=== PATIENT | male | born 1955 | race Caucasian/White ===

== ENCOUNTER 2019-06-18 09:30 | Inpatient (IN) | payer OTHER ==
--- NOTE | 2019-06-12 15:18 | HP ---
Amended report to enter cosigning physician on report. HISTORY AND PHYSICAL: DATE OF ADMISSION/SURGERY: 06/18/19 DATE OF OFFICE VISIT: 06/10/19 SURGEON: Hollie Daniels MD* PROCEDURE: Right total hip arthroplasty. CHIEF COMPLAINT: Right hip pain. HISTORY OF PRESENT ILLNESS: Mr. Gandhi is a 63-year-old gentleman with end-stage osteoarthritis of the right hip. He has failed conservative treatment and elected to proceed with a right total hip arthroplasty. PAST MEDICAL HISTORY: Hypertension. PAST SURGICAL HISTORY: Hernia repair and right shoulder arthroscopy. CURRENT MEDICATIONS: 1. Atenolol 25 mg a day. 2. Lisinopril/hydrochlorothiazide 10/12.5 mg daily. 3. 81 mg aspirin. 4. Multivitamin. 5. Diphenhydramine 25 mg a day as needed. ALLERGIES: No known drug allergies. FAMILY HISTORY: Cancer and diabetes. SOCIAL HISTORY: He is a 63-year-old gentleman, lives alone. He does report using medical marijuana and has been sober for the last 2 days. Prior to that, he reports 3 to 5 beers a night for the last few weeks. REVIEW OF SYSTEMS: A complete 14-point review of systems was reviewed with the patient. It was all negative or noncontributory. He denies history of DVT, PE , hepatitis, HIV, or anesthesia problems. PHYSICAL EXAMINATION GENERAL: He is well developed, well nourished, in no acute distress. VITAL SIGNS: He stands 70 inches tall, weighs 178 pounds. His blood pressure is 134/70, his heart rate is 66. HEENT: Normocephalic, atraumatic. NECK: Supple. No palpable lymph nodes. PULMONARY: The lungs are clear to auscultation bilaterally. CARDIO: Regular rate and rhythm. Strong S1, S2. ABDOMEN: Soft, nontender, nondistended. NEUROLOGICAL: He is alert and oriented x3. MUSCULOSKELETAL: Right lower extremity: The skin is intact. There are no open wounds or abrasions. He walks with an antalgic-type gait favoring his right hip. He has decreased internal and external rotation of the right hip. He is able to dorsiflex and plantar flex, has a 2+ dorsalis pedis pulse and intact sensation. ASSESSMENT AND PLAN: Mr. Gandhi is a 63-year-old gentleman with end-stage osteoarthritis of the right hip. He has failed conservative treatment and elected to proceed with a right total hip arthroplasty. The surgery is scheduled for 06/18/[address] Daniels discussed the risks and benefits of the surgery at today's visit and all of his questions were answered. He will follow up with Dr. Daniels 2 weeks after the surgery. MAGALY GUARDADO [id number]/[facility] #: [id number] MTDLetty
[~2019-06-18 09:30] MED LIST: Acetaminophen TAB* 325 MG PO ONE; Buffered Lidocaine 1% SYRIN* 1 ML/SYRINGE INTRADERM ONE; Gabapentin CAP(*) 300 MG PO ONE; Lactated Ringers 1000 ML Bag* 1,000 ML IV SCH; Tranexamic Acid 1,000 MG in NS 0.9% 50 ML* (outpatient use) IV SCH; celeCOXIB CAP* 200 MG PO ONE
--- OUTSIDE RECORDS SUMMARY | 2019-06-18 09:33 | XMS REPORT | Continuity of Care Document ---
:1955 External Reference #:[id number] Author Name Leda Medina MD (transmitted by agent of provider Shahida Camacho) Address [address] [facility] , [place] [address] Care Team Providers Name Role Phone Kassidy Schwarz MD - Internal Medicine Care Team Information School Examiner [phone] Problems Active Problems Provider Date Localized, primary osteoarthritis of the pelvic Hollie Daniels M.D. Onset: region and thigh Social History Type Date Description Comments Sex Unknown ETOH Use Currently consumes Approx. 10 beers per alcohol week Tobacco Use Start: Unknown End: Patient is a former 1 ppd from 17-40 Unknown smoker Smoking Status Reviewed: 06/05/19 Patient is a former 1 ppd from 17-40 smoker Exercise Exercises regularly twice daily. Type/Frequency exercise bar and stairs. Allergies, Adverse Reactions, Alerts Description No Known Drug Allergies Medications Active Medications SIG Qnty Indications Ordering Provider Date Atenolol 1 by mouth every 30tabs Joshua Concepcion NP 02/20/2019 25mg Tablets day Celecoxib 1 by mouth once 30caps M16.0 Joshua Concepcion NP 02/20/2019 200mg Capsules daily as needed Lisinopril-Hydrochloro 1 by mouth every 30tabs Joshua Concepcion NP 01/16/2019 thiazide day 10-12.5mg Tablets Aspirin 81 Low Dose 1 by mouth every Unknown 81mg day Chewtabs Multivitamin Adult 1 by mouth every Unknown day Tablets History Medications Hydrocodone-Acetaminophen 1 or 2 tabs by 30tabs Joshua Concepcion 02/27/2019 - 5-325mg Tablets mouth every PAPER FEEDER 06/03/2019 6-8 hours as needed for pain Medications Administered in Office Medication SIG Qnty Indications Ordering Provider Date Depomedrol 40MG Uziel Uribe MD 01/16/2019 Injection Immunizations Description No Information Available Vital Signs Date Vital Result Comment 06/05/2019 10:01am Height 70.75 inches 5'10.75" Weight 180.00 lb Heart Rate 55 /min BP Systolic Sitting 113 mmHg BP Diastolic Sitting 69 mmHg Body Temperature 97.5 F O2 % BldC Oximetry 94 % BMI (Body Mass Index) 25.3 kg/m2 05/06/2019 1:59pm Height 70.75 inches 5'10.75" Weight 182.00 lb Heart Rate 60 /min BP Systolic 116 mmHg BP Diastolic 70 mmHg Respiratory Rate 12 /min Body Temperature 97.2 F Pain Level 4 BMI (Body Mass Index) 25.6 kg/m2 Results Test Acquired Date Facility Test Result H/L Range Note Laboratory test 03/08/2019 [facility] In House Hemosure <pending> finding Non-Medicare Procedures Date Code Description Status 01/16/2019 Inject/Drain Joint/Bursa Major W/O US Completed Medical Devices Description No Information Available Encounters Type Date Location Provider Dx Diagnosis Office Visit 05/06/2019 [facility] Hollie Daniels, M25.552 Pain in left hip 1:45p at [facility].Rohan M25.551 Pain in right hip M16.12 Unilateral primary osteoarthritis, left hip M16.11 Unilateral primary osteoarthritis, right hip Office Visit 03/08/2019 2:40p [facility] Joshuavel Concepcion PAPER FEEDER M25.552 Pain in left Medicine - [facility] hip I10 Essential (primary) hypertension I83.93 Asymptomatic varicose veins of bilateral lower extremities Z13.1 Encounter for screening for diabetes mellitus Z12.5 Encounter for screening for malignant neoplasm of prostate Z13.220 Encounter for screening for lipoid disorders Z12.11 Encounter for screening for malignant neoplasm of colon Office Visit 02/20/2019 11:00a [facility] Joshuavel Concepcion, I10 Essential ( primary) Medicine - [facility] PAPER FEEDER hypertension M16.0 Bilateral primary osteoarthritis of hip M25.562 Pain in left knee M25.561 Pain in right knee Office Visit 01/16/2019 [facility] Michelle M19.011 Primary 1:00p [facility] at [facility] osteoarthritis, [place] right shoulder S40.011A Contusion of right shoulder, initial encounter M75.101 Unsp rotatr-cuff tear/ruptr of right shoulder, not trauma Assessments Date Code Description Provider 06/05/2019 Z01.818 Encounter for other preprocedural Leda Medina MD examination 06/05/2019 M16.11 Unilateral primary osteoarthritis, right Leda Medina MD hip 06/05/2019 M25.551 Pain in right hip Leda Medina MD 05/06/2019 M25.552 Pain in left hip Hollie Daniels M.D. 05/06/2019 M25.551 Pain in right hip Hollie Daniels M.D. 05/06/2019 M16.12 Unilateral primary osteoarthritis, left Hollie Daniels M.D. hip 05/06/2019 M16.11 Unilateral primary osteoarthritis, right Hollie Daniels M.D. hip 03/08/2019 M25.552 Pain in left hip Joshua Jamey, PAPER FEEDER 03/08/2019 I10 Essential (primary) hypertension Joshua Jamey, PAPER FEEDER 03/08/2019 I83.93 Asymptomatic varicose veins of bilateral Joshua Jamey, PAPER FEEDER lower extremities 03/08/2019 Z13.1 Encounter for screening for diabetes Joshua Jamey, PAPER FEEDER mellitus 03/08/2019 Z12.5 Encounter for screening for malignant Joshua Jamey, PAPER FEEDER neoplasm of prostate 03/08/2019 Z13.220 Encounter for screening for lipoid Joshua Jamey, PAPER FEEDER disorders 03/08/2019 Z12.11 Encounter for screening for malignant Joshua Jamey, PAPER FEEDER neoplasm of colon 02/20/2019 I10 Essential (primary) hypertension Joshua Jamey, PAPER FEEDER 02/20/2019 M16.0 Bilateral primary osteoarthritis of hip Joshua Jamey, PAPER FEEDER 02/20/2019 M25.562 Pain in left knee Joshua Jamey, PAPER FEEDER 02/20/2019 M25.561 Pain in right knee Joshua Jamye, PAPER FEEDER 01/16/2019 M19.011 Primary osteoarthritis, right shoulder Uziel Uribe MD 01/16/2019 S40.011A Contusion of right shoulder, initial Uziel Uribe MD encounter 01/16/2019 M75.101 Unspecified rotator cuff tear or rupture Uziel Uribe MD of right shoulder, not specified as traumatic Plan of Treatment Future Appointment(s):06/10/2019 1:30 pm - Hollie Daniels M.D. at [facility] at Ocefkr3806/18/2019 12:30 pm - Hollie Daniels M.D. at [facility] at Mdjbhk9606/05/2019 - Leda Medina MDZ01.818 Encounter for other preprocedural jollvlzrvjqB67.11 Unilateral primary osteoarthritis, right hipComments:Can ask Dr Daniels on 06/10/19 specifica of the zcezrrrA63.551 Pain in right hip Functional Status Description No Information Available Mental Status Description No Information Available Referrals Refer to Reason for Referral Status Appt Date Isa Mcdaniel MD Sent 06/05/[address] [place] [address], [facility] [place] [address] [phone]
--- OUTSIDE RECORDS SUMMARY | 2019-06-18 09:33 | XMS REPORT | Continuity of Care Document ---
:1955 External Reference #:[id number] Author Name Hollie Daniels M.D. (transmitted by agent of provider Anay Rahman) Address [address] [facility] [place] [address] Care Team Providers Name Role Phone Kassidy Schwarz MD - Internal Medicine Care Team Information Grab Driver [phone] Problems Active Problems Provider Date Localized, primary osteoarthritis of the pelvic Hollie Daniels M.D. Onset: region and thigh Social History Type Date Description Comments Sex Unknown ETOH Use Currently consumes Approx. 10 beers per alcohol week Tobacco Use Start: Unknown End: Patient is a former 1 ppd from 17-40 Unknown smoker Smoking Status Reviewed: 06/10/19 Patient is a former 1 ppd from 17-40 smoker Exercise Exercises regularly twice daily. Type/Frequency exercise bar and stairs. Allergies, Adverse Reactions, Alerts Description No Known Drug Allergies Medications Active Medications SIG Qnty Indications Ordering Date Provider Hydrocodone-Acetaminophe 1 tabs by 21tabs Hollie Daniels, 06/10/2019 n mouth every 8 M.D. 5-325mg Tablets hours as needed for pain Atenolol 1 by mouth 30tabs Joshua Concepcion NP 02/20/2019 25mg Tablets every day Celecoxib 1 by mouth once 30caps M16.0 Joshua Concepcion NP 02/20/2019 200mg Capsules daily as needed Lisinopril-Hydrochloroth 1 by mouth 30tabs Joshua Concepcion NP 01/16/2019 iazide every day 10-12.5mg Tablets Aspirin 81 Low Dose 1 by mouth Unknown 81mg every day- On Chewtabs Hold Multivitamin Adult 1 by mouth Unknown Tablets every day Diphenhydramine HCL Unknown 25mg Capsules History Medications Hydrocodone-Acetaminophen 1 or 2 tabs by 30tabs Joshua Concepcion, 02/27/2019 - 5-325mg Tablets mouth every RACK PUNCHER 06/03/2019 6-8 hours as needed for pain Medications Administered in Office Medication SIG Qnty Indications Ordering Provider Date Depomedrol 40MG Uziel Uribe MD 01/16/2019 Injection Immunizations Description No Information Available Vital Signs Date Vital Result Comment 06/10/2019 1:34pm Height 70.75 inches 5'10.75" Weight 178.00 lb Heart Rate 66 /min BP Systolic 134 mmHg BP Diastolic 70 mmHg Body Temperature 96.3 F Pain Level 6 BMI (Body Mass Index) 25.0 kg/m2 06/05/2019 10:01am Height 70.75 inches 5'10.75" Weight 180.00 lb Heart Rate 55 /min BP Systolic Sitting 113 mmHg BP Diastolic Sitting 69 mmHg Body Temperature 97.5 F O2 % BldC Oximetry 94 % BMI (Body Mass Index) 25.3 kg/m2 Results Test Acquired Date Facility Test Result H/L Range Note Laboratory test 03/08/2019 [facility] In House Hemosure <pending> finding Non-Medicare Procedures Date Code Description Status 01/16/201983190 Inject/Drain Joint/Bursa Major W/O US Completed Medical Devices Description No Information Available Encounters Type Date Location Provider Dx Diagnosis Office Visit 06/05/2019 [facility] Internal Leda Medina, Z01.818 Encounter for other 10:00a Medicine - [facility] preprocedural examination M16.11 Unilateral primary osteoarthritis, right hip M25.551 Pain in right hip Office Visit 05/06/2019 1:45p [facility] Hollie Daniels, M25.552 Pain in left at [facility]. hip M25.551 Pain in right hip M16.12 Unilateral primary osteoarthritis, left hip M16.11 Unilateral primary osteoarthritis, right hip Office Visit 03/08/2019 2:40p [facility] Internal Joshua Concepcion NP M25.552 Pain in left Medicine - [facility] hip I10 Essential (primary) hypertension I83.93 Asymptomatic varicose veins of bilateral lower extremities Z13.1 Encounter for screening for diabetes mellitus Z12.5 Encounter for screening for malignant neoplasm of prostate Z13.220 Encounter for screening for lipoid disorders Z12.11 Encounter for screening for malignant neoplasm of colon Office Visit 02/20/2019 11:00a [facility] Joshua Jamey, I10 Essential ( primary) Medicine - [facility] RACK PUNCHER hypertension M16.0 Bilateral primary osteoarthritis of hip M25.562 Pain in left knee M25.561 Pain in right knee Office Visit 01/16/2019 Sada Michelle M19.011 Primary 1:00p [facility]oped[facility] at [facility] oste[facility], [place] right shoulder S40.011A Contusion of right shoulder, initial encounter M75.101 Unsp rotatr-cuff tear/ruptr of right shoulder, not trauma Assessments Date Code Description Provider 06/10/2019 M25.551 Pain in right hip Hollie Daniels M.D. 06/10/2019 M16.11 Unilateral primary osteoarthritis, right Hollie Daniels M.D. hip 06/05/2019 Z01.818 Encounter for other preprocedural Leda [...] 03/08/2019 M25.552 Pain in left hip Joshua Concepcion NP 03/08/2019 I10 Essential (primary) hypertension Joshua Concepcion NP 03/08/2019 I83.93 Asymptomatic varicose veins of bilateral Joshua Concepcion NP lower extremities 03/08/2019 Z13.1 Encounter for screening for diabetes Joshua Concepcion NP mellitus 03/08/2019 Z12.5 Encounter for screening for malignant Joshua Concepcion NP neoplasm of prostate 03/08/2019 Z13.220 Encounter for screening for lipoid Joshua Concepcion NP disorders 03/08/2019 Z12.11 Encounter for screening for malignant Joshua Concepcion NP neoplasm of colon 02/20/2019 I10 Essential (primary) hypertension Joshua Jamey, RACK PUNCHER 02/20/2019 M16.0 Bilateral primary osteoarthritis of hip Joshua Jamey, VALE 02/20/2019 M25.562 Pain in left knee Joshua Jamey, RACK PUNCHER 02/20/2019 M25.561 Pain in right knee Joshua Jamey, RACK PUNCHER 01/16/2019 M19.011 Primary osteoarthritis, right shoulder zUiel Uribe MD 01/16/2019 S40.011A Contusion of right shoulder, initial Uziel Uribe MD encounter 01/16/2019 M75.101 Unspecified rotator cuff tear or rupture Uziel Uribe MD of right shoulder, not specified as traumatic Plan of Treatment Future Appointment(s):07/02/2019 2:30 pm - MAGALY Arroyo at [facility] at Uwioww4306/18/2019 12:30 pm - MAGALY Arroyo at [facility]06/18/2019 12:30 pm - Waldemar Elder PA-C at [facility] at Tszfvs0207/17/2019 9:15 am - Chirag Abdullahi MD at [facility]06/18/2019 12:30 pm - Hollie Daniels M.D. at [facility] at Wmgfmr8406/10/2019 - Hollie Daniels M.D.M25.551 Pain in right hipFollow up:Follow up: 2 weeks after feuhzylG84.11 Unilateral primary osteoarthritis, right hip Functional Status Description No Information Available Mental Status Description No Information Available Referrals Refer to Reason for Referral Status Appt Date Isa Mcdaniel MD Sent 06/05/[address] [place] [address], [place] [address] [phone]
--- OUTSIDE RECORDS SUMMARY | 2019-06-18 09:34 | XMS REPORT | Continuity of Care Document ---
:1955 External Reference #:[id number] Author Name Hollie Daniels M.D. (transmitted by agent of provider Kelsie Fong) Address [address] [facility] [place] [address] Care Team Providers Name Role Phone Kassidy Schwarz MD - Internal Medicine Care Team Information Photogrammetric Technician Problems Active Problems Provider Date Localized, primary osteoarthritis of the pelvic Hollie Daniels M.D. Onset: region and thigh Social History Type Date Description Comments Sex Unknown ETOH Use Currently consumes Approx. 10 beers per alcohol week Tobacco Use Start: Unknown End: Patient is a former 1 ppd from 17-40 Unknown smoker Smoking Status Reviewed: 05/06/19 Patient is a former 1 ppd from 17-40 smoker Exercise Exercises regularly Type/Frequency Allergies, Adverse Reactions, Alerts Description No Known Drug Allergies Medications Active Medications SIG Qnty Indications Ordering Provider Date Hydrocodone-Acetaminop 1 or 2 tabs by 30tabs Joshua Concepcion NP 02/27/2019 hen mouth every 6-8 5-325mg Tablets hours as needed for pain Atenolol 1 by mouth every 30tabs Joshua [...] 1 by mouth every Unknown day Tablets Medications Administered in Office Medication SIG Qnty Indications Ordering Provider Date Depomedrol 40MG Uziel Uribe MD 01/16/2019 Injection Immunizations Description No Information Available Vital Signs Date Vital Result Comment 05/06/2019 1:59pm Height 70.75 inches 5'10.75" Weight 182.00 lb Heart Rate 60 /min BP Systolic 116 mmHg BP Diastolic 70 mmHg Respiratory Rate 12 /min Body Temperature 97.2 F Pain Level 4 BMI (Body Mass Index) 25.6 kg/m2 03/08/2019 2:55pm Height 70 inches 5'10" Weight 182.50 lb Heart Rate 61 /min BP Systolic Sitting 117 mmHg BP Diastolic Sitting 66 mmHg Body Temperature 97.9 F O2 % BldC Oximetry 98 % BMI (Body Mass Index) 26.2 kg/m2 Results Test Acquired Date Facility Test Result H/L Range Note Laboratory test 03/08/2019 [facility] In House Hemosure <pending> finding Non-Medicare Procedures Date Code Description Status 01/16/2019 45090 Inject/Drain Joint/Bursa Major W/O US Completed Medical Devices Description No Information Available Encounters Type Date Location Provider Dx Diagnosis Office Visit 03/08/2019 [facility] Internal Joshua Concepcion NP M25.552 Pain in left hip 2:40p [facility] - [facility] I10 Essential (primary) hypertension I83.93 Asymptomatic varicose veins of bilateral lower extremities Z13.1 Encounter for screening for diabetes mellitus Z12.5 Encounter for screening for malignant neoplasm of prostate Z13.220 Encounter for screening for lipoid disorders Z12.11 Encounter for screening for malignant neoplasm of colon Office Visit 02/20/2019 11:00a [facility] Internal Joshua Concepcion, I10 Essential ( primary) Medicine - [facility] SLAT BASKET TOP MAKER hypertension M16.0 Bilateral primary osteoarthritis of hip M25.562 Pain in left knee M25.561 Pain in right knee Office Visit 01/16/2019 [place] Uziel Michelle M19.011 Primary 1:00p [facility] at [facility] oste[facility], [place] right shoulder S40.011A Contusion of right shoulder, initial encounter M75.101 Unsp rotatr-cuff tear/ruptr of right shoulder, not trauma Assessments Date Code Description Provider 05/06/2019 M25.552 Pain in left hip Hollie Daniels M.D. 05/06/2019 M25.551 Pain in right hip Hollie Daniels M.D. 05/06/2019 M16.12 Unilateral primary osteoarthritis, left Hollie Daniels M.D. hip 05/06/2019 M16.11 Unilateral primary osteoarthritis, right Hollie Daniels M.D. hip 03/08/2019 M25.552 Pain in left hip Joshua Jamey, SLAT BASKET TOP MAKER 03/08/2019 I10 Essential (primary) hypertension Joshua Jamey, SLAT BASKET TOP MAKER 03/08/2019 I83.93 Asymptomatic varicose veins of bilateral Joshua Jamey, SLAT BASKET TOP MAKER lower extremities 03/08/2019 Z13.1 Encounter for screening for diabetes Joshua Jamey, SLAT BASKET TOP MAKER mellitus 03/08/2019 Z12.5 Encounter for screening for malignant Joshua Jamey, SLAT BASKET TOP MAKER neoplasm of prostate 03/08/2019 Z13.220 Encounter for screening for lipoid Joshua Jamey, SLAT BASKET TOP MAKER disorders 03/08/2019 Z12.11 Encounter for screening for malignant Joshua Jamey, SLAT BASKET TOP MAKER neoplasm of colon 02/20/2019 I10 Essential (primary) hypertension Joshua Jamey, SL[employer] BASKET TOP MAKER 02/20/2019 M16.0 Bilateral primary osteoarthritis of hip Joshua Jamey, SLAT BASKET TOP MAKER 02/20/2019 M25.562 Pain in left knee Joshua Jamey, SL[employer] BASKET TOP MAKER 02/20/2019 M25.561 Pain in right knee Joshua Jamey, SLAT BASKET TOP MAKER 01/16/2019 M19.011 Primary osteoarthritis, right shoulder Uziel Uribe MD 01/16/2019 S40.011A Contusion of right shoulder, initial Uziel Uribe MD encounter 01/16/2019 M75.101 Unspecified rotator cuff tear or rupture Uziel Uribe MD of right shoulder, not specified as traumatic Plan of Treatment Future Appointment(s):06/05/2019 1:45 pm - Isa Mcdaniel MD at [facility] Yupusdhzpml54/27/2020 - Hollie Daniels M.D.M25.552 Pain in left hipM25.551 Pain in right hipM16.12 Unilateral primary osteoarthritis, left hipM16.11 Unilateral primary osteoarthritis, right hipFollow up:Follow up: 7-10 days before surgery Functional Status Description No Information Available Mental Status Description No Information Available Referrals Refer to Dr Reason for Referral Status Appt Date Isa Mcdaniel MD Sent 06/05/[address] [place] [address], [facility] [place] [address] [phone]
[2019-06-18] MEDS ORDERED: Acetaminophen TAB* 325 MG ONE (09:41)
[2019-06-18] MEDS ORDERED: celeCOXIB CAP* 200 MG ONE (09:42)
[2019-06-18] MEDS ORDERED: Buffered Lidocaine 1% SYRIN* 1 ML/SYRINGE INTRADERM ONE (09:42)
[2019-06-18] MEDS ORDERED: Gabapentin CAP(*) 300 MG ONE (09:42)
[2019-06-18] MEDS ORDERED: ceFAZolin 2 GM PREMIX in ORs 2 GM/50 ML BAG ONE (09:42)
[2019-06-18] MEDS ORDERED: Midazolam* 1 MG/ML 2 ML VIAL (2 MG) ONE ×2 (10:50→12:44)
[2019-06-18] MEDS ORDERED: fentaNYL* 50 MCG/ML 2 ML VIAL (100 MCG VIAL) ONE (10:50)
[2019-06-18] MEDS ORDERED: Naloxone* 0.4 MG/ML 1 ML VIAL IV PRN (11:11)
[2019-06-18] MEDS ORDERED: Bupivacaine 0.5% SDV PF* 30ML VIAL ONE (12:21)
[2019-06-18] MEDS ORDERED: Phenylephrine 40 MCG/ML SYRINGE ONE (12:51)
[2019-06-18] MEDS ORDERED: Propofol* 10 MG/ML 20 ML BTL ONE (13:09)
[2019-06-18] MEDS ORDERED: oxyCODONE/Acetamin 5/325 MG* TAB PO PRN (15:04)
[2019-06-18] MEDS ORDERED: Cyclobenzaprine TAB* 10 MG PO PRN (15:04)
[2019-06-18] MEDS ORDERED: Ondansetron INJ* 2 MG/ML VIAL IV PRN (15:04)
[2019-06-18] MEDS ORDERED: Ondansetron ODT TAB* 4 MG PO PRN (15:04)
[2019-06-18] MEDS ORDERED: diPHENhydraMINE IV* 50 MG/ML 1 ml VIAL (BENADRYL) IV PRN (15:04)
[2019-06-18] MEDS ORDERED: Acetaminophen TAB* 325 MG PO PRN (15:04)
[2019-06-18] MEDS ORDERED: Morphine INJ* 2 MG/ML 1 ML SYRINGE (TWO MG - NEW SYRINGE VERSION) IV PRN (15:04)
[2019-06-18] MEDS ORDERED: diPHENhydraMINE PO* 25 MG PO PRN (15:04)
[2019-06-18] MEDS ORDERED: Magnesium Hydroxide LIQ* 30 ML UDC PO PRN (15:04)
[2019-06-18] MEDS ORDERED: HYDROmorphone INJ1* 1 MG/ML SYRINGE ONE (15:19)
[2019-06-18] MEDS: HYDROmorphone INJ1* 1 MG/ML SYRINGE IV PRN ×2 (15:20→15:35)
[2019-06-18] MEDS ORDERED: oxyCODONE TAB* 5 MG TAB ONE (16:43)
[2019-06-18] MEDS: oxyCODONE TAB* 5 MG TAB PO PRN ×2 (16:44→23:14)
[2019-06-18] MEDS: Lactated Ringers 1000 ML Bag* 1,000 ML IV SCH (17:17)
--- NOTE | 2019-06-18 18:06 | PN ---
Progress Note - Progress Note Date of Service: 06/18/19 Note: Pt seen at bedside POD 0 sp RTH. He feels well and pain is controlled. Denies CP , SOB, dizziness, nausea. thigh soft, df/pf intact, dp2+, sensation intact to light touch distally
--- NOTE | 2019-06-18 20:20 | OP ---
Operative Report - Blank - Operative Report Date of Operation: 06/18/19 Note: HANG WYATT 1955 Date Of Surgery: 06/18/19 Hollie Daniels MD Rodding Anode Worker: Keagan MCKENZIE did help throughout the procedure with preparation of the hip, wound retraction, manipulation of the hip, and wound closure. Anesthesiologist: Dr. Broderick Anesthesia Type: Spinal Preoperative Diagnosis: Right severe degenerative osteoarthritis of the hip Postoperative Diagnosis: As above Procedure Performed: Right Total Hip Arthroplasty Complications: None Specimen: Femoral head and acetabular reamings sent to pathology. Hardware used: This is uncemented Winton total hip arthroplasty hardware for the femur a size 5 accolade II with 127 neck angle femoral component, for the acetabulum a size 56F trident II tritanium cluster hole shell, one 15 mm screw, for the insert a size 40F trident X3 polyethylene insert, and for the femoral head a size 40 +0 ceramic biolox V40 femoral head. Brief history/Indication: HANG WYATT was known in clinic and had a history of severe right hip pain. He failed conservative treatment with anti- inflammatories, pain pills, intra-articular injections and physical therapy. He elected to undergo right total hip arthroplasty due to continued pain and decreased quality of life. Radiographs showed severe end stage osteoarthritis of the hip with bone on bone contact. Informed consent was obtained from the patient. He understood the risks of surgery included but were not limited to: bleeding, infection, damage to nearby structures, intraoperative fracture, nerve palsy, failure of the hardware, early loosening, stiffness or loss of motion, dislocation, leg length discrepancy, anesthesia complications, stroke, heart attack, blood clot and . HE wished to proceed. Intra-Operative findings: Intraoperatively the patient was noted to have severe loss of cartilage of the acetabulum and femoral head. He had significant osteopenia noted. Description of the Procedure: HANG WYATT was identified in the preanesthesia unit. His right hip was marked as the correct operative side. Informed consent was signed and placed in the chart. The patient was taken to the operating room and placed under anesthesia without complication. A whitaker catheter was placed. The patient was placed on the peg board with all bony prominences well padded. The right lower extremity was prepped and draped in the usual sterile fashion. Preoperative time -out was made to correctly identify the patient, side and site. Appropriate intraoperative antibiotics were given within one hour of incision. A standard posterior incision was made and carried sharply down to the lateral fascia. A new 10 blade was used to make an incision in the fascia in line with the skin incision. A charnley retractor was placed. The piriformis and conjoined tendons were identified and elevated off the posterolateral femur using electrocautery. These were tagged with number 5 Ethibond. Next electrocautery was used to make a posterolateral capsular flap and this was tagged with number 5 Ethibonds. The hip was carefully dislocated. Lesser trochanter to the center of the femoral head was measured at 65 mm. The oscillating saw was used to make the femoral neck cut. The femoral head was carefully removed. The femur was retracted anteriorly and the acetabular retractors were placed. Long-handled knife was used to sharply remove any remaining labrum from the acetabular rim. The acetabulum was sequentially reamed up to a size 56. A bleeding subchondral bone bed was obtained. A trial liner was placed and had excellent fit and stability. A 56F cup with one screw was placed and had excellent stability with appropriate anteversion and abduction angle. A size 40F liner was impacted into the acetabular shell. The liner was checked for stability and was stable. Next attention was turned to preparation of the femoral canal. A canal finder was used to enter the proximal femur. The femoral canal was sequentially broached up to a size 5 femoral broach trial. A trial neck and 40 + 0 trial femoral head was chosen. Lesser trochanter to center of the femoral head measurement was satisfactory. The hip was reduced and taken through a range of motion. The hip was stable in all positions with good soft tissue tension and appropriate leg lengths. The hip was dislocated and all trials were removed. The final implant chosen was a accolade size 5. This stem was impacted into the femoral canal without difficulty. The stem was stable with appropriate anteversion. The femoral head chosen was a 40 +0 ceramic head. The head was impacted onto the femoral neck without difficulty. The final lesser trochanter to center of the femoral head measurement was satisfactory. The hip was reduced and taken through a range of motion. The hip was stable in all positions with good soft tissue tension and appropriate leg lengths. The hip was copiously irrigated with sterile saline. The previously tagged capsule and tendons were repaired to the posterolateral femur through two trochanteric drill holes. The lateral fascia layer was closed using number 1 vicryls. The rest of the incision was closed in a layered fashion using 0 and 2-0 vicryls. The skin was closed using 3-0 monocryl suture and Dermabond. Sterile adaptic, 4x4s and paper tape was used to cover the incision. The patients anesthesia was reversed without difficulty. He was taken to the PACU in stable condition. Intended weight-bearing will be as tolerated with posterior hip precautions.
[2019-06-18] MEDS: oxyCODONE/Acetamin 5/325 MG* TAB PO PRN (20:26)
[2019-06-18] MEDS: Docusate CAP* 100 MG PO SCH (20:31)
[2019-06-18] MEDS: Magnesium Hydroxide LIQ* 30 ML UDC PO SCH (20:32)
[2019-06-18] MEDS: ceFAZolin 1 GM ADVAN(*) 1 GM in NS 0.9% 50 ML* 50 ML IVPB SCH (21:04)
--- NOTE | 2019-06-19 00:58 | CONS ---
CONSULTATION REPORT: DATE OF CONSULT: 06/18/19 REQUESTED BY: MAGALY Alanis, Orthopedics. REASON FOR CONSULT: Co-management of medical comorbidities. HISTORY OF PRESENT ILLNESS: Mr. Gandhi is a 63-year-old male with past medical history significant for hypertension and osteoarthritis. Today, he had an elective right total hip replacement with Dr. Daniels after failing conservative outpatient measures. He states that his high blood pressure has been under good control with medications and he checks this every once in while at the drug store. He states that he has some numbness at times to bilateral hands which is per his baseline. This is nothing new for him. He denies any recent fevers, chills, headaches, chest pain, shortness of breath, abdominal discomfort , diarrhea, difficulty with urination, unusual numbness or tingling prior to surgery. PAST MEDICAL HISTORY: 1. Hypertension. 2. Osteoarthritis. PAST SURGICAL HISTORY: 1. Hernia repair. 2. Right shoulder arthroscopy. HOME MEDICATIONS: 1. Multivitamin 1 tab p.o. daily. 2. Lisinopril/hydrochlorothiazide 10/12.5 mg p.o. daily. 3. Atenolol 25 mg p.o. q.a.m. 4. ASA 81 mg p.o. daily which he stopped approximately 1 week before surgery. ALLERGIES: No known drug allergies. FAMILY HISTORY: Mother with lung cancer. Father with diabetes mellitus and vascular dementia. Paternal grandfather with diabetes mellitus. SOCIAL HISTORY: Denies any tobacco use. States he was having between 2 and 4 beers a night up to 5 times per week in the last couple of weeks which was helping him control his pain in relation to his OA. States that he did not have any alcohol for the last 3 to 4 days prior to surgery. Smokes marijuana every other day. Lives alone. States that surrogate decision maker for him will be his sister, Sandee Gandhi. REVIEW OF SYSTEMS: A 10-point review of systems was completed with this patient. Please see HPI for all pertinent positives and negatives. PHYSICAL EXAM: Constitutional: The patient is lying in bed, in no acute distress. Last Vital Signs: Temp 97.6, heart rate 59, respiratory rate 16, O2 sat 98% on room air, BP 125/74. HEENT: PERRL. No scleral icterus noted. Cardiovascular: Heart rate regular. S1, S2 present. No murmurs, rubs, or gallops noted. Extremities: Trace pitting pedal edema to left foot. No edema noted throughout right lower extremity. Pedal pulses present 2+ bilaterally. Musculoskeletal: Range of motion within normal limits to bilateral upper extremities, strength 5/5 to bilateral upper extremities. GI: Normoactive bowel sounds throughout. Abdomen: Soft, nontender to palpation. Skin: Incision to right hip covered with dressing which is clean, dry and intact. Neuro: Alert and oriented x3. Cranial nerves II through XII grossly intact, able to sense light touch to bilateral feet, more so to left foot. DIAGNOSTIC STUDIES/LAB DATA: Pelvic x-ray, impression: Status post right hip arthroplasty. Preoperative labs did show RBC of 4.08, hemoglobin 13.1, hematocrit 38, MCH 32, platelet count 290, WBC 7.5. Chemistry panel showed BUN/creatinine ratio 25.0 otherwise within normal limits. UA showed trace ketones, otherwise unremarkable. INR 0.96. APTT 34.4. ASSESSMENT AND PLAN: Mr. Gandhi is a 63-year-old male with a past medical history significant for hypertension and osteoarthritis. He had an elective right total hip replacement with Dr. Daniels done on 06/18/19. Hospital Medicine was asked to consult for co-management of medical comorbidities. 1. Status post right total hip arthroplasty. Pain management, bowel management , incision management per Orthopedics. 2. Hypertension. Blood pressure stable. We will hold lisinopril, hydrochlorothiazide tomorrow morning if blood pressure remains stable. 3. FEN: Regular unrestricted diet. IV fluids per Orthopedics. 4. Code status: Full code. 5. DVT prophylaxis: Per Orthopedics. We will have SCDs and we will restart on Eliquis tomorrow. 6. Disposition: SSU. Thank you for allowing us to participate in the care of this patient. We will follow during this admission. This case has been discussed with and he agrees with this plan. MERRILL YEUNG NP [id number]/CPS #: [id number] [facility] MEDICAL CENTERLetty
[2019-06-19] MEDS ORDERED: diPHENhydraMINE PO* 25 MG PO ONE (01:09)
[2019-06-19] MEDS: oxyCODONE/Acetamin 5/325 MG* TAB PO PRN ×3 (01:17→12:43)
[2019-06-19] MEDS: Lactated Ringers 1000 ML Bag* 1,000 ML IV SCH (03:30)
[2019-06-19] MEDS: ceFAZolin 1 GM ADVAN(*) 1 GM in NS 0.9% 50 ML* 50 ML IVPB SCH ×2 (05:40→12:42)
[2019-06-19] MEDS: oxyCODONE TAB* 5 MG TAB PO PRN ×2 (05:41→10:11)
[2019-06-19 07:19] LABS: Hematocrit 29 % (42-52); Hemoglobin 10.2 g/dL (14.0-18.0); Mean Platelet Volume 7.4 fL (7.4-10.4); Platelet Count 234 10^3/uL (150-450)
[2019-06-19 07:34] LABS: BUN/Creatinine Ratio 23.1 (8-20); Calcium 8.7 mg/dL (8.6-10.3); EGFR African American 122.4 (>60); EGFR Non-African American 101.2 (>60); Potassium 3.5 mmol/L (3.5-5.0)
[2019-06-19] MEDS: Magnesium Hydroxide LIQ* 30 ML UDC PO SCH (08:19)
[2019-06-19] MEDS: Docusate CAP* 100 MG PO SCH (08:20)
[2019-06-19] MEDS ORDERED: Apixaban* 2.5 MG TAB PO SCH (09:00)
[2019-06-19] MEDS ORDERED: Vitamin THERAPEUTIC TAB PO SCH (09:00)
[2019-06-19] MEDS ORDERED: Atenolol TAB* 25 MG PO SCH (09:00)
[2019-06-19 11:14] VITALS: BP 101/64
--- NOTE | 2019-06-19 11:23 | DS ---
Orthopedic Discharge Summary - Discharge Summary Date of Admission:06/18/19 Date of Discharge: 06/17/19 Date of Surgery: 06/18/19 Attending Orthopedic Provider: Dr Daniels Pre-operative Diagnosis: Right hip osteoarthritis Operative Procedure: right total hip replacement Disposition of Patient:home Home care vs Outpatient services: outpt Condition of Patient: stable Pain medication RX at discharge: oxycodone 5 mg tabs 1-2 tabs q 4 hr mdd 10 DVT prophylaxis RX at discharge: eliquis 2.5 mg po bid x 30 days post op History: HANG WYATT is a 63 year old M with years of increasingly severe right hip pain. Patient has failed conservative management and has elected to undergo a right total hip replacement Hospital Course: HANG was admitted to [facility] on 06/18/19. Patient underwent a right total hip replacement without complication followed by a brief recovery in PACU and transfer to the Short Stay Surgical Unit in stable condition. Our hospitalist service, physical therapy and occupational therapy also participated in this patients care. Post-op day 1: patient was alert and in no acute distress. Dressing was clean, dry and intact. Operative extremity dorsiflexion and plantarflexion intact, sensation intact to light touch distally, DP2+. Prior to discharge: dressing was changed, incision was clean, dry and intact. Patient was deemed to be medically and orthopedically stable for discharge. Physical therapy goals were met. Home Medications Medication Instructions Recorded Confirmed Type Atenolol TAB* [Tenormin TAB* 25 MG] 25 mg PO QAM 06/10/19 06/18/19 History Multivitamin [Once Daily] 1 tab PO QAM 06/10/19 06/18/19 History Aspirin 81 mg CHEW TAB* 81 mg PO DAILY 06/18/19 06/18/19 History Lisinopril/Hydrochlorothiazide 1 each PO DAILY 06/18/19 06/18/19 History [Lisinopril-Hctz 10-12.5 mg Tab] Acetaminophen TAB* [Tylenol TAB*] 650 mg PO Q8HR PRN tab 06/19/19 Rx Apixaban* [Eliquis*] 2.5 mg PO BID #60 tab 06/19/19 Rx Docusate CAP* [Colace Cap*] 100 mg PO BID PRN #50 cap 06/19/19 Rx oxyCODONE TAB* [Roxycodone TAB 5 10 mg PO Q4H PRN #50 tab MDD 10 06/19/19 Rx mg*] Discharge Instructions following Orthopedic Surgery: Activity: * Weight Bearing as tolerated * Continue physical therapy and occupational therapy exercises as shown * you have elected outpatient physical therapy, please start therapy as an outpatient right away. Hip replacements: Continue Hip Precautions- do not cross legs or bend greater than 90 degrees/squat Wound care: * OK to shower on post-op day 3, no bathing, swimming, or submerging wound. * Use gentle soap, pat dry. Cover with gauze, EFRAIN wrap or tape. Call Orthopedic office for: * Increased drainage * Redness * Increased pain * Fever Go to ER with shortness of breath or chest pain. Diet: * Regular diet * Increase fluids and fiber to prevent constipation. * Continue to use stool softeners, call office if no bowel motion within 48 hours. Medications See Home Medication List in your packet for medications that you should take after discharge. DVT Prophylaxis: Eliquis Dosin.5 mg, 1 tab every 12 hours x 30 days. Increases bleeding tendency Pain Control: Oxycodone 5 mg tabs: take 1 tab for moderate pain and 2 tabs for severe pain by mouth every 4 hours as needed. Maximum of 10 tabs per day. Hold for sedation, wean off as soon as pain allows. Antibiotics are required prior to any dental work. FOLLOW UP: Follow up with Dr. Marin Within [10-14] days, call for appointment Please call our office with any questions or concerns ([phone]) [facility]
== END 2019-06-19 14:55 | disposition home or self-care (01) | DRG 301 ==
LOC: AA 09:30 → SSU 15:05
PROVIDERS: ADMIT Orthopaedic Surgery Adult Reconstructive Orthopaedic Surgery; ATTEND Orthopaedic Surgery Adult Reconstructive Orthopaedic Surgery
PROC: 0SR904A Replacement of Right Hip Joint with Ceramic on Polyethylene Synthetic Substitute, Uncemented, Open Approach (ICD-10-PCS; principal; 2019-06-18 12:30)
DX: M16.11 Unilateral primary osteoarthritis, right hip (principal); I10 Essential (primary) hypertension; F41.9 Anxiety disorder, unspecified; M85.88 Other specified disorders of bone density and structure, other site; Z79.899 Other long term (current) drug therapy; Z91.030 Bee allergy status; Z87.891 Personal history of nicotine dependence; Z79.82 Long term (current) use of aspirin
CPT/HCPCS: 36415; 72170; 80048; 85014; 85018; 85049; 88304; 88311; A9270-GY; C1713; C1776; J0690; J1170; J2250; J2704; J3010; J3490

== ENCOUNTER 2019-10-29 09:06 | Inpatient (IN) ==
[~2019-10-29 09:06] MED LIST changes: -Acetaminophen TAB* 325 MG PO ONE; +Buffered Lidocaine 1% SYRIN 1 ml INTRADERM ONE; -Buffered Lidocaine 1% SYRIN* 1 ML/SYRINGE INTRADERM ONE; -Gabapentin CAP(*) 300 MG PO ONE; -Lactated Ringers 1000 ML Bag* 1,000 ML IV SCH; +Lactated Ringers 1000 ml BAG 1,000 ML IV SCH; -Tranexamic Acid 1,000 MG in NS 0.9% 50 ML* (outpatient use) IV SCH; -celeCOXIB CAP* 200 MG PO ONE
[2019-10-29] MEDS ORDERED: ceFAZolin 2 GM PREMIX 2 GM/50 ML BAG ONE (09:19)
[2019-10-29] MEDS ORDERED: fentaNYL 100 mcg/2 ml 50 MCG/ML VIAL IV PRN (09:29)
[2019-10-29] MEDS ORDERED: HYDROmorphone 1 MG/1 ML SYRINGE IV PRN (09:29)
[2019-10-29] MEDS ORDERED: Naloxone 0.4 mg VIAL 0.4 mg/ml 1 ml VIAL IV PRN (09:29)
[2019-10-29] MEDS ORDERED: diPHENhydraMINE IV 50 MG/ML 1 ml VIAL (BENADRYL) IV PRN ×2 (09:29→13:04)
[2019-10-29] MEDS ORDERED: Prochlorperazine 5 mg/ml 2 ml VIAL (10 mg) IV PRN (09:29)
[2019-10-29] MEDS ORDERED: fentaNYL 100 mcg/2 ml 50 MCG/ML VIAL ONE ×2 (10:14→12:49)
[2019-10-29] MEDS ORDERED: Midazolam 2 mg/2 ml VIAL 1 mg/ml 2 ml VIAL (2 mg) ONE (10:14)
[2019-10-29] MEDS ORDERED: Propofol 10 MG/ML 20 ML BTL ONE (10:14)
[2019-10-29] MEDS ORDERED: Ondansetron 4 mg VIAL 2 MG/ML 2 ml VIAL ONE (10:14)
[2019-10-29] MEDS ORDERED: Acetaminophen IV 1 GM/100ML 100 ML ONE (10:14)
[2019-10-29] MEDS ORDERED: Dexamethasone IV 4 MG/ML VIAL 1 ml VIAL ONE (10:14)
[2019-10-29] MEDS ORDERED: Glycopyrrolate IV 0.2 MG/ML 1 ML VIAL ONE (10:14)
[2019-10-29] MEDS ORDERED: Ondansetron 4 mg VIAL 2 MG/ML 2 ml VIAL IV PRN (13:04)
[2019-10-29] MEDS ORDERED: Ondansetron ODT 4 mg TAB 4 MG TAB PO PRN (13:04)
[2019-10-29] MEDS ORDERED: Magnesium Hydroxide LIQ 30 ML UDC PO PRN (13:04)
[2019-10-29] MEDS ORDERED: diPHENhydraMINE 25 mg TAB PO PRN (13:04)
[2019-10-29] MEDS ORDERED: Morphine 2 MG/ML SYRINGE IV PRN (13:04)
[2019-10-29] MEDS ORDERED: Lactulose 30 ml UDC PO PRN (13:04)
[2019-10-29] MEDS ORDERED: ROPIVACAINE 5 MG/ML 30 ML BTL (0.5%) ONE (13:22)
[2019-10-29] MEDS: Lactated Ringers 1000 ml BAG 1,000 ML IV SCH (15:45)
[2019-10-29] MEDS: oxyCODONE/Acetamin 5/325 mg TAB PO PRN ×2 (16:19→21:49)
[2019-10-29] MEDS: ceFAZolin 1 GM ADVAN 1 GM in NS 0.9% 50 ML 50 ML IVPB SCH (19:36)
[2019-10-29] MEDS: Magnesium Hydroxide LIQ 30 ML UDC PO SCH (19:37)
[2019-10-30] MEDS: Lactated Ringers 1000 ml BAG 1,000 ML IV SCH (01:44)
[2019-10-30] MEDS: oxyCODONE/Acetamin 5/325 mg TAB PO PRN ×3 (01:46→10:36)
[2019-10-30] MEDS: ceFAZolin 1 GM ADVAN 1 GM in NS 0.9% 50 ML 50 ML IVPB SCH ×2 (03:47→11:07)
[2019-10-30 04:56] LABS: Hematocrit 28 % (42-52); Hemoglobin 9.8 g/dL (14.0-18.0); Mean Platelet Volume 7.1 fL (7.4-10.4); Platelet Count 180 10^3/uL (150-450)
[2019-10-30 05:12] LABS: BUN/Creatinine Ratio 22.2 (8-20); Calcium 7.8 mg/dL (8.6-10.3); EGFR African American 103.8 (>60); EGFR Non-African American 85.8 (>60)
[2019-10-30] MEDS: Magnesium Hydroxide LIQ 30 ML UDC PO SCH ×2 (08:26→08:39)
[2019-10-30] MEDS ORDERED: Vitamin THERAPEUTIC TAB PO SCH (09:00)
[2019-10-30 11:27] VITALS: BP 102/55
== END 2019-10-30 13:00 | disposition home or self-care (01) | DRG 301 ==
LOC: OBSVTOIN 09:06 → INTOOBSV 09:06 → AA 09:06 → SSU 13:05
PROVIDERS: ADMIT Orthopaedic Surgery Adult Reconstructive Orthopaedic Surgery; ATTEND Orthopaedic Surgery Adult Reconstructive Orthopaedic Surgery